=== PATIENT | male | born 1960 | race Caucasian/White ===

== ENCOUNTER → 2016-05-11 | Outpatient (CLI) | payer SELFPAY ==
[2016-05-11 09:18] LABS: Basophils # (A) 0.1 k/uL (0-0.2); Basophils % (A) 1 %; CH 33.4; CHCM 33.2; Eosinophils # (A) 0.7 k/uL (0-0.7); Eosinophils % (A) 10 %; HCT 48.3 % (39.0-53.0); HDW 2.31; HGB 15.4 gm/dL (13.0-17.5); Luc # (Auto) 0.12; Luc % (Auto) 2; Lymphocytes # (A) 1.8 k/uL (1.0-4.8); Lymphocytes % (A) 26 %; MCH 32.1 pg (25.0-35.0); MCHC 31.8 g/dL (31.0-37.0); MCV 100.9 fL (80.0-100.0); Mean Platelet Volume 7.9; Monocytes # (A) 0.4 k/uL (0-1.0); Monocytes % (A) 5 %; Neutrophils # (A) 3.8 k/uL (1.3-7.7); Neutrophils % (A) 56 %; RBC 4.79 m/uL (4.30-5.90); RDW 12.7 % (11.5-15.5); Reticulocyte % 1.4 % (0.5-2.0); WBC 6.7 k/uL (3.8-10.6); WBC (Perox) 6.58
[2016-05-11 09:34] LABS: ALT 47 U/L (21-72); AST 38 U/L (17-59); Alkaline Phosphatase 99 U/L (38-126); Anion Gap 11 mmol/L; Bilirubin, Delta 0.2 mg/dL (0.0-0.2); Blood Urea Nitrogen 18 mg/dL (9-20); Calcium 9.6 mg/dL (8.4-10.2); Carbon Dioxide 28 mmol/L (22-30); Chloride 103 mmol/L (98-107); Cholesterol 161 mg/dL (<200); Glucose 100 mg/dL (74-99); Non-African American GFR(MDRD) >60 (>60 ml/min/1.73 sqM); Phosphorous 3.3 mg/dL (2.5-4.5); Potassium 4.9 mmol/L (3.5-5.1); Sodium 142 mmol/L (137-145); Total Bilirubin 1.4 mg/dL (0.2-1.3); Total Protein 7.3 g/dL (6.3-8.2); Triglycerides 115 mg/dL (<150)
== END | disposition home or self-care (01) ==
LOC: LABWHC1 07:05
PROVIDERS: ATTEND Physician Assistant Medical
DX: L13.0 Dermatitis herpetiformis (principal)
CPT/HCPCS: 36415; 80069; 80076; 82465; 84478; 85025; 85045

== ENCOUNTER → 2017-10-25 | Outpatient (CLI) | payer SELFPAY ==
[2017-10-25 08:54] LABS: Basophils # (A) 0.1 k/uL (0-0.2); Basophils % (A) 1 %; Eosinophils # (A) 0.6 k/uL (0-0.7); Eosinophils % (A) 9 %; HCT 47.7 % (39.0-53.0); HGB 15.3 gm/dL (13.0-17.5); Lymphocytes # (A) 1.3 k/uL (1.0-4.8); Lymphocytes % (A) 21 %; MCH 31.7 pg (25.0-35.0); MCHC 32.1 g/dL (31.0-37.0); MCV 98.8 fL (80.0-100.0); Mean Platelet Volume 6.3; Monocytes # (A) 0.4 k/uL (0-1.0); Monocytes % (A) 6 %; Neutrophils # (A) 3.7 k/uL (1.3-7.7); Neutrophils % (A) 60 %; Platelet Count 194 k/uL (150-450); RBC 4.82 m/uL (4.30-5.90); RDW 13.2 % (11.5-15.5); Reticulocyte % 1.8 % (0.5-2.0); WBC 6.2 k/uL (3.8-10.6)
[2017-10-25 09:19] LABS: ALT 40 U/L (21-72); AST 36 U/L (17-59); Albumin 4.3 g/dL (3.5-5.0); Alkaline Phosphatase 92 U/L (38-126); Anion Gap 9 mmol/L; Bilirubin, Delta 0.1 mg/dL (0.0-0.2); Bilirubin,Unconjugated 1.4 mg/dL (0.0-1.1); Blood Urea Nitrogen 14 mg/dL (9-20); Calcium 9.4 mg/dL (8.4-10.2); Carbon Dioxide 27 mmol/L (22-30); Chloride 105 mmol/L (98-107); Cholesterol 154 mg/dL (<200); Glucose 104 mg/dL (74-99); Phosphorus 3.8 mg/dL (2.5-4.5); Potassium 4.7 mmol/L (3.5-5.1); Sodium 141 mmol/L (137-145); Total Bilirubin 1.5 mg/dL (0.2-1.3); Total Protein 6.7 g/dL (6.3-8.2); Triglycerides 39 mg/dL (<150)
== END | disposition home or self-care (01) ==
LOC: LABWHC1 08:09
PROVIDERS: ATTEND Nurse Practitioner Family
DX: L13.0 Dermatitis herpetiformis (principal)
CPT/HCPCS: 36415; 80069; 82248; 82465; 84075; 84155; 84450; 84460; 84478; 85025; 85045

== ENCOUNTER → 2018-11-14 | Outpatient (CLI) | payer BC ==
[2018-11-14 11:09] LABS: HGB 15.3 gm/dL (13.0-17.5); MCH 32.3 pg (25.0-35.0); MCHC 31.9 g/dL (31.0-37.0); MCV 101.3 fL (80.0-100.0); Mean Platelet Volume 6.8; Platelet Count 207 k/uL (150-450); RBC 4.74 m/uL (4.30-5.90); RDW 12.8 % (11.5-15.5); Reticulocyte % 1.3 % (0.5-2.0); WBC 8.4 k/uL (3.8-10.6)
[2018-11-14 11:29] LABS: Band Neutrophils % 1 %; Eosinophils # (M) 0.76 k/uL (0-0.7); Lymphocytes # (M) 1.43 k/uL (1.0-4.8); Monocytes # (M) 0.67 k/uL (0-1.0); Neutrophils % (M) 65 %; Nucleated Red Blood Cells 0 /100 WBC (0-0); Total Cells Counted 100
[2018-11-14 16:44] LABS: African American GFR (CKD) 86.5 (60.0-200.0); BUN/Creat Ratio 12.73 Ratio (12.00-20.00); Calcium 9.3 mg/dL (8.7-10.3); Carbon Dioxide 30.1 mmol/L (21.6-31.8); Chloride 109 mmol/L (96-109); Cholesterol 148 mg/dL (0-200); Glucose 121 mg/dL (70-110); Phosphorus 3.7 mg/dL (2.4-5.1); Potassium 5.1 mmol/L (3.5-5.5); Sodium 144 mmol/L (135-145)
[2018-11-17 05:56] LABS: Albumin/Globulin Ratio 2.15; Total Protein 6.3
[2018-11-17 05:58] LABS: AST 30
[2018-11-17 05:59] LABS: ALT 25; Alkaline Phosphatase 117
== END | disposition home or self-care (01) ==
LOC: LABWHC1 08:06
PROVIDERS: ATTEND Physician Assistant Medical
DX: L13.0 Dermatitis herpetiformis (principal)
CPT/HCPCS: 36415; 80069; 80076; 82465; 84478; 85025; 85045

== ENCOUNTER → 2020-04-24 | Outpatient (CLI) | payer BC ==
[2020-04-24 08:54] LABS: Basophils % (A) 1 %; Eosinophils # (A) 0.5 k/uL (0-0.7); Eosinophils % (A) 9 %; HCT 45.4 % (39.0-53.0); HGB 14.5 gm/dL (13.0-17.5); Lymphocytes # (A) 1.3 k/uL (1.0-4.8); Lymphocytes % (A) 22 %; MCH 31.6 pg (25.0-35.0); MCV 98.7 fL (80.0-100.0); Mean Platelet Volume 7.1; Monocytes # (A) 0.3 k/uL (0-1.0); Monocytes % (A) 5 %; Neutrophils # (A) 3.6 k/uL (1.3-7.7); Neutrophils % (A) 61 %; Platelet Count 198 k/uL (150-450); RDW 13.1 % (11.5-15.5); Reticulocyte % 2.2 % (0.5-2.0); WBC 5.9 k/uL (3.8-10.6)
[2020-04-24 17:53] LABS: % Iron Saturation 47.66 (15.00-50.00); ALT 24 U/L (10-49); AST 25 U/L (14-35); African American GFR (CKD) 95.7 (60.0-200.0); Alkaline Phosphatase 117 U/L (41-126); Calcium 9.4 mg/dL (8.7-10.3); Carbon Dioxide 27.5 mmol/L (21.6-31.8); Chloride 106 mmol/L (96-109); Cholesterol 158 mg/dL (0-200); Glucose 102 mg/dL (70-110); Iron 122 ug/dL (65-175); Non-African American GFR(CKD) 82.6 (60.0-200.0); Potassium 5.3 mmol/L (3.5-5.5); Sodium 142 mmol/L (135-145); Total Bilirubin 1.4 mg/dL (0.3-1.2); Total Iron Binding Capacity 256 ug/dL (228-460); Total Protein 6.3 g/dL (6.2-8.2); Triglycerides <50.0 mg/dL (0.0-149.0)
== END | disposition home or self-care (01) ==
LOC: LABWHC1 07:49
PROVIDERS: ATTEND Physician Assistant Medical
DX: L13.0 Dermatitis herpetiformis (principal)
CPT/HCPCS: 36415; 80069; 80076; 82465; 83540; 83550; 84478; 85025; 85045

== ENCOUNTER → 2023-04-28 | Outpatient (CLI) | payer BC ==
[2023-04-28 11:56] LABS: Basophils # (A) 0.04 X 10*3/uL (0.00-0.10); Basophils % (A) 0.6 %; Eosinophils % (A) 4.4 %; HCT 48.2 % (39.6-50.0); HGB 15.4 g/dL (13.0-17.0); Lymphocytes % (A) 21.8 %; MCH 31.9 pg (27.0-32.0); MCV 99.8 FL (80.0-97.0); Mean Platelet Volume 9.9 FL (9.5-12.2); Monocytes # (A) 0.57 X 10*3/uL (0.20-1.00); Monocytes % (A) 8.3 %; NRBC Per 100 WBC 0 X 10*3/uL (0.00-0.01); Neutrophils # (A) 4.45 X 10*3/uL (1.80-7.70); Neutrophils % (A) 64.6 %; Platelet Count 248 X 10*3/uL (140-440); RBC 4.83 X 10*6/uL (4.40-5.60); RDW 12.6 % (11.5-14.5); WBC 6.88 X 10*3/uL (4.50-10.00)
[2023-04-28 11:57] LABS: Reticulocyte % 1.69 % (0.10-1.80)
[2023-04-28 12:11] LABS: ALT 19 U/L (10-49); AST 24 U/L (14-35); Albumin 4.3 g/dL (3.8-4.9); Albumin/Globulin Ratio 1.72 Ratio (1.60-3.17); Alkaline Phosphatase 129 U/L (41-126); BUN/Creat Ratio 10.58 Ratio (12.00-20.00); Bilirubin, Conjugated <0.20 mg/dL (0.20-0.40); Bilirubin,Unconjugated >0.30 mg/dL (0.20-1.00); Blood Urea Nitrogen 12.7 mg/dL (9.0-27.0); Calcium 9.9 mg/dL (8.7-10.3); Carbon Dioxide 28.5 mmol/L (21.6-31.8); Chloride 106 mmol/L (96-109); Globulin 2.5 g/dL (1.6-3.3); Glucose 96 mg/dL (70-110); Phosphorus 3.4 mg/dL (2.4-5.1); Potassium 4.6 mmol/L (3.5-5.5); Sodium 145 mmol/L (135-145); Total Bilirubin 0.5 mg/dL (0.3-1.2); Total Protein 6.8 g/dL (6.2-8.2)
== END | disposition home or self-care (01) ==
LOC: LABWHC1 07:01
PROVIDERS: ATTEND Dermatology MOHS-Micrographic Surgery
DX: L13.0 Dermatitis herpetiformis (principal); Z79.899 Other long term (current) drug therapy
CPT/HCPCS: 36415; 80069; 80076; 82465; 84478; 85025; 85045